=== PATIENT | male | born 1940 | race Caucasian/White ===

== ENCOUNTER → 2018-06-26 | Outpatient (CLI) | payer OTHER | END | disposition home or self-care (01) | LOC: PETCFH 07:47 | PROVIDERS: ATTEND Internal Medicine Hematology & Oncology | DX: C90.00 Multiple myeloma not having achieved remission (principal); N28.1 Cyst of kidney, acquired; I10 Essential (primary) hypertension; I73.9 Peripheral vascular disease, unspecified | CPT/HCPCS: 78815; A9552 ==

== ENCOUNTER 2018-07-19 11:49 | Day surgery (SDC) | payer OTHER ==
[~2018-07-19] VITALS: Ht 182.9 cm; Wt 118.2 kg
[~2018-07-19 11:49] MED LIST: ACET325T26 PO; AMLO10TA8 PO; ASCO10004 PO; ASPI81TA45 PO; ATOR10TA9 PO; CHOL10003 PO; CYAN100074 PO; DIPHENHYDRAMINE 50 MG/ML, 1ML IVPush PRN; FENTANYL PF 100 MCG/2ML IV PRN; FINA5TAB4 PO; HALOPERIDOL 5 MG/ML IV PRN; HYDROmorphone 2 MG/ML, 1ML IVPush PRN; LABETALOL 5MG/ML, 20ML IV PRN; MEPERIDINE/PF 25MG/0.5ML IVPush PRN; METOPROLOL 1 MG/ML, 5ML IV PRN; MULT-516 PO; OXYB10TA PO; OXYcodone 5 MG/5 ML ORAL.SOL UDC PO PRN; PROCHLORPERAZINE 5 MG/ML, 2ML IV PRN; PROMETHAZINE 25 MG/ML, 1ML IV PRN; hydrALAzine 20 MG/ML, 1ML IV PRN
[2018-07-19] MEDS ORDERED: CEFU250T66 PO (12:38)
[2018-07-19] MEDS ORDERED: LACTATED RINGERS 1,000 ML IV SCH (12:40)
[2018-07-19] MEDS ORDERED: FENTANYL PF 100 MCG/2ML ONE ×2 (12:42→14:41)
[2018-07-19 12:44] VITALS: BP 94/57
[2018-07-19] MEDS ORDERED: ACETAMINOPHEN 500 MG TABLET PO ONE (13:00)
[2018-07-19] MEDS ORDERED: PIPERACILLIN/TAZO/PMX 3.375GM 50 ML ONE (13:58)
[2018-07-19] MEDS ORDERED: OPIUM/BELLADONNA SUPP.RECT 16.2-30 MG ONE (14:55)
[2018-07-19] MEDS ORDERED: GLYCOPYRROLATE 0.2MG/1ML, 5ML ONE (15:14)
[2018-07-19] MEDS ORDERED: ONDANSETRON 2MG/ML, 2ML ONE (15:14)
[2018-07-19] MEDS ORDERED: SUCCINYLCHOLINE 20 MG/ML, 10ML ONE (15:14)
[2018-07-19] MEDS ORDERED: CEFAZOLIN 1,000 MG ONE (15:14)
[2018-07-19] MEDS ORDERED: DEXAMETHASONE 4 MG/ML, 1ML ONE (15:14)
[2018-07-19] MEDS ORDERED: ROCURONIUM 10MG/ML,5ML ONE (15:14)
[2018-07-19] MEDS ORDERED: PROPOFOL 10 MG/ML, 20ML ONE (15:14)
[2018-07-19] MEDS ORDERED: NEOSTIGMINE 1 MG/ML, 10ML ONE (15:14)
[2018-07-19] MEDS ORDERED: OMNIPAQUE 350 MG/ML, 50 ML BOTTLE IV ONE (19:31)
== END 2018-07-19 18:30 | disposition home or self-care (01) ==
LOC: OUT 11:49
PROVIDERS: ATTEND Student in an Organized Health Care Education/Training Program
DX: N13.30 Unspecified hydronephrosis (principal); C90.00 Multiple myeloma not having achieved remission; N40.1 Benign prostatic hyperplasia with lower urinary tract symptoms; N39.41 Urge incontinence; R35.0 Frequency of micturition; R39.14 Feeling of incomplete bladder emptying; I12.9 Hypertensive chronic kidney disease with stage 1 through stage 4 chronic kidney disease, or unspecified chronic kidney disease; N47.1 Phimosis; N18.9 Chronic kidney disease, unspecified; E78.5 Hyperlipidemia, unspecified; J44.9 Chronic obstructive pulmonary disease, unspecified; F17.210 Nicotine dependence, cigarettes, uncomplicated; E66.9 Obesity, unspecified; Z68.35 Body mass index [BMI] 35.0-35.9, adult; Z72.89 Other problems related to lifestyle; Z79.891 Long term (current) use of opiate analgesic; Z79.899 Other long term (current) drug therapy; Z91.012 Allergy to eggs; Z91.013 Allergy to seafood; Z88.8 Allergy status to other drugs, medicaments and biological substances; Z85.038 Personal history of other malignant neoplasm of large intestine; Z96.641 Presence of right artificial hip joint; Z98.890 Other specified postprocedural states
CPT/HCPCS: 50431; 52332; 52351; 52648; 74420; 88112; 93005; C1758; C1769; C2617; J0330; J1100; J2405; J2543; J2704; J2710; J3010; J7120; Q9967; J0690

== ENCOUNTER 2019-10-31 11:22 | Observation (INO) | payer OTHER ==
[~2019-10-31] VITALS: Ht 182.9 cm; Wt 118.0 kg
[~2019-10-31 11:22] MED LIST changes: +ASCO100018 PO; -ASCO10004 PO; +CEFU250T66 PO; -DIPHENHYDRAMINE 50 MG/ML, 1ML IVPush PRN; -FENTANYL PF 100 MCG/2ML IV PRN; -HALOPERIDOL 5 MG/ML IV PRN; -HYDROmorphone 2 MG/ML, 1ML IVPush PRN; -LABETALOL 5MG/ML, 20ML IV PRN; -MEPERIDINE/PF 25MG/0.5ML IVPush PRN; -METOPROLOL 1 MG/ML, 5ML IV PRN; -OXYB10TA PO; +OXYB10TA26 PO; -OXYcodone 5 MG/5 ML ORAL.SOL UDC PO PRN; -PROCHLORPERAZINE 5 MG/ML, 2ML IV PRN; -PROMETHAZINE 25 MG/ML, 1ML IV PRN; -hydrALAzine 20 MG/ML, 1ML IV PRN
[2019-10-31 11:44] VITALS: BP 111/56
[2019-10-31] MEDS ORDERED: LACTATED RINGERS 1,000 ML IV SCH (11:47)
[2019-10-31] MEDS ORDERED: PLEASE ENTER HEIGHT AND WEIGHT MC SCH (12:00)
[2019-10-31] MEDS ORDERED: CHLORHEXIDINE 15 ML UDC ONE (13:00)
[2019-10-31] MEDS ORDERED: PROPOFOL 10 MG/ML, 20ML ONE ×2 (13:30→13:45)
[2019-10-31] MEDS ORDERED: LIDOCAINE-MPF 2% ,5ML ONE (13:30)
[2019-10-31] MEDS ORDERED: FENTANYL PF 100 MCG/2ML ONE ×3 (13:30→19:00)
[2019-10-31] MEDS ORDERED: CHLORHEXIDINE 15 ML UDC MM STA (13:42)
[2019-10-31] MEDS ORDERED: MIDAZOLAM 1 MG/ML, 2ML ONE (13:43)
[2019-10-31] MEDS ORDERED: FENTANYL PF 250 MCG/5ML ONE (13:43)
[2019-10-31] MEDS ORDERED: ROCURONIUM 10MG/ML,5ML ONE (13:45)
[2019-10-31] MEDS ORDERED: GLYCOPYRROLATE 0.2MG/1ML, 5ML ONE (13:45)
[2019-10-31] MEDS ORDERED: NEOSTIGMINE 1 MG/ML, 10ML ONE (13:45)
[2019-10-31] MEDS ORDERED: CEFAZOLIN 1,000 MG ONE (13:45)
[2019-10-31] MEDS ORDERED: ONDANSETRON 2MG/ML, 2ML IVPush PRN (16:30)
[2019-10-31] MEDS ORDERED: hydrALAzine 20 MG/ML, 1ML IVPush PRN (16:30)
[2019-10-31] MEDS ORDERED: ACETAMINOPHEN 325 MG TABLET PO PRN (16:30)
[2019-10-31] MEDS ORDERED: MELATONIN 5 MG TABLET PO PRN (16:30)
[2019-10-31] MEDS ORDERED: HYDROmorphone 2 MG/ML, 1ML IVPush PRN (16:30)
[2019-10-31] MEDS ORDERED: BACLOFEN 10 MG TABLET PO PRN (16:30)
[2019-10-31] MEDS ORDERED: ONDANSETRON ODT 4 MG PO PRN (16:30)
[2019-10-31] MEDS ORDERED: LABETALOL 5MG/ML, 20ML IVPush PRN (16:30)
[2019-10-31] MEDS ORDERED: KETOROLAC 30 MG/1 ML IV PRN (16:30)
[2019-10-31] MEDS ORDERED: IBUPROFEN 600 MG TABLET PO PRN (16:30)
[2019-10-31] MEDS ORDERED: ENOXAPARIN 40 MG/0.4 ML SQ SCH (16:30)
[2019-10-31] MEDS ORDERED: SUCCINYLCHOLINE 20 MG/ML, 10ML ONE (18:14)
[2019-10-31] MEDS ORDERED: OMNIPAQUE 350 MG/ML, 50 ML BOTTLE IV ONE (18:40)
[2019-10-31] MEDS ORDERED: VASOPRESSIN 20 UNIT/ML, 1ML ONE (19:00)
[2019-10-31 21:59] VITALS: BP 117/69
[2019-10-31] MEDS ORDERED: ATORVASTATIN 10 MG TABLET PO SCH (22:09)
[2019-10-31] MEDS ORDERED: CEFUROXIME 500 MG TABLET PO SCH (22:09)
[2019-11-01 00:01] VITALS: BP 112/67
[2019-11-01 03:34] VITALS: BP 113/68
[2019-11-01] MEDS ORDERED: ASPIRIN 81 MG TABLET EC PO SCH (06:00)
[2019-11-01 07:08] VITALS: BP 124/70
[2019-11-01] MEDS ORDERED: ATORVASTATIN 10 MG TABLET PO SCH (09:00)
[2019-11-01] MEDS ORDERED: MULTIVITAMIN 1 TABLET PO SCH (09:00)
[2019-11-01] MEDS ORDERED: CYANOCOBALAMIN 1,000 MCG TABLET PO SCH (09:00)
[2019-11-01] MEDS ORDERED: AMLODIPINE 10 MG TAB PO SCH (09:00)
[2019-11-01] MEDS ORDERED: OXYBUTYNIN CHLORIDE 5 MG TABLET PO SCH (09:00)
[2019-11-01] MEDS ORDERED: FINASTERIDE 5 MG TABLET PO SCH (09:00)
[2019-11-01] MEDS ORDERED: CHOLECALCIFEROL 1,000 UNIT TABLET PO SCH (09:00)
[2019-11-01] MEDS ORDERED: SENNA/DOCUSATE TABLET PO SCH (09:00)
[2019-11-01] MEDS ORDERED: ASCORBIC ACID 500 MG TABLET PO SCH (09:00)
[2019-11-01 12:14] VITALS: BP 137/75
== END 2019-11-01 12:15 | disposition home or self-care (01) ==
LOC: OUT 11:22 → SUATTDRO 15:09 → ORIP 17:49 → 4NE 20:51
PROVIDERS: ADMIT Hospitalist; ATTEND Family Medicine
DX: N13.1 Hydronephrosis with ureteral stricture, not elsewhere classified (principal); Z20.828 Contact with and (suspected) exposure to other viral communicable diseases; R33.9 Retention of urine, unspecified; E66.01 Morbid (severe) obesity due to excess calories; C90.00 Multiple myeloma not having achieved remission; N40.0 Benign prostatic hyperplasia without lower urinary tract symptoms; I10 Essential (primary) hypertension; J44.9 Chronic obstructive pulmonary disease, unspecified; M19.90 Unspecified osteoarthritis, unspecified site; E78.5 Hyperlipidemia, unspecified; I73.9 Peripheral vascular disease, unspecified; K21.9 Gastro-esophageal reflux disease without esophagitis; N47.1 Phimosis; F17.200 Nicotine dependence, unspecified, uncomplicated; Z85.038 Personal history of other malignant neoplasm of large intestine; Z96.0 Presence of urogenital implants; Z79.899 Other long term (current) drug therapy; Z79.82 Long term (current) use of aspirin; Z90.79 Acquired absence of other genital organ(s)
CPT/HCPCS: 52332; 74420; 87635; 93005; 96372; C1769; C2617; G0378; J0330; J0690; J1650; J2250; J2704; J2710; J3010; J3490; J7120; Q9967

== ENCOUNTER 2020-05-06 10:24 | Outpatient (CLI) | payer OTHER ==
[~2020-05-06] VITALS: Ht 185.4 cm; Wt 117.8 kg
[~2020-05-06 10:24] MED LIST changes: +AMLO-211 PO; -AMLO10TA8 PO
[2020-05-06] MEDS ORDERED: ASCO500T56 PO (11:14)
[2020-05-06] MEDS ORDERED: FERR324T5 PO (11:14)
[2020-05-06] MEDS ORDERED: ACYC-114 PO (11:14)
[2020-05-06] MEDS ORDERED: GABA600T7 PO (11:14)
[2020-05-06] MEDS ORDERED: lisinopril PO (11:14)
[2020-05-06] MEDS ORDERED: CHLORHEXIDINE 15 ML UDC PO ONE (11:30)
[2020-05-06] MEDS ORDERED: LACTATED RINGERS 1,000 ML IV SCH (11:30)
[2020-05-06 11:35] VITALS: BP 151/83
[2020-05-06 12:08] LABS: BASOPHILS % (AUTO) 1 % (0-1); EOSINOPHILS % (AUTO) 3 % (1-7); LYMPHOCYTES % (AUTO) 15 % (22-44); MEAN CORPUSCULAR HEMOGLOBIN 30.8 pg (27.5-34.5); MEAN CORPUSCULAR HGB CONC 32.9 g/dL (33.2-36.2); MONOCYTES % (AUTO) 9 % (2-9); NEUTROPHILS % (AUTO) 73 % (42-75); PLATELET COUNT 180 x10^3/uL (130-400); RED BLOOD COUNT 3.61 x10^6/uL (4.38-5.82); RED CELL DISTRIBUTION WIDTH 18.9 % (9.4-14.8)
[2020-05-06 12:09] LABS: MD NO
[2020-05-06 12:13] LABS: ANION GAP 6 mmol/L (5-15); CALCIUM 9.2 mg/dL (8.5-10.1); CHLORIDE 108 mmol/L (98-107); CREATININE 1.14 mg/dL (0.7-1.3)
[2020-05-06 12:20] LABS: INTERNATIONAL NORMALIZED RATIO 1.06 (0.93-1.1); PROTHROMBIN TIME 11.3 Seconds (9.6-11.5)
[2020-05-06] MEDS ORDERED: OMNIPAQUE 350 MG/ML, 50 ML BOTTLE ONE (12:32)
== END 2020-05-06 23:59 | disposition home or self-care (01) ==
LOC: STAR 10:24 → OUT 10:24 → STAR 23:59
PROVIDERS: ATTEND Student in an Organized Health Care Education/Training Program
DX: Z01.818 Encounter for other preprocedural examination (principal); N13.5 Crossing vessel and stricture of ureter without hydronephrosis; I44.4 Left anterior fascicular block; Z79.899 Other long term (current) drug therapy; Z20.822 Contact with and (suspected) exposure to COVID-19
CPT/HCPCS: 36415; 80048; 85025; 85610; 87635; 93005; Q9967; J7120

== ENCOUNTER 2020-06-12 09:31 | Day surgery (SDC) | payer OTHER ==
[~2020-06-12] VITALS: Ht 182.9 cm; Wt 113.0 kg
[~2020-06-12 09:31] MED LIST changes: +ACYC-40 PO; +ASCO500T56 PO; +FERR324T5 PO; +GABA600T7 PO; +lisinopril PO
[2020-06-12 10:12] VITALS: BP 148/83
[2020-06-12] MEDS ORDERED: CHLORHEXIDINE 15 ML UDC ONE (10:13)
[2020-06-12] MEDS ORDERED: CHLORHEXIDINE 15 ML UDC PO ONE (10:30)
[2020-06-12] MEDS ORDERED: LACTATED RINGERS 1,000 ML IV SCH (10:30)
[2020-06-12] MEDS ORDERED: OMNIPAQUE 350 MG/ML, 50 ML BOTTLE ONE (11:37)
[2020-06-12] MEDS ORDERED: FENTANYL PF 100 MCG/2ML ONE (11:47)
[2020-06-12] MEDS ORDERED: AMPICILLIN 2 GM ONE (11:52)
[2020-06-12] MEDS ORDERED: GENTAMICIN 80 MG/2 ML ONE (11:52)
[2020-06-12] MEDS ORDERED: DEXAMETHASONE 4 MG/ML, 1ML ONE (12:34)
[2020-06-12] MEDS ORDERED: PROPOFOL 10 MG/ML, 20ML ONE (12:34)
[2020-06-12] MEDS ORDERED: CEFAZOLIN 1,000 MG ONE (12:34)
[2020-06-12] MEDS ORDERED: ONDANSETRON 2MG/ML, 2ML ONE (12:34)
[2020-06-12] MEDS ORDERED: OXYcodone 5 MG/5 ML ORAL.SOL UDC PO PRN (13:00)
[2020-06-12] MEDS ORDERED: ONDANSETRON 2MG/ML, 2ML IVPush PRN (13:00)
[2020-06-12] MEDS ORDERED: PROMETHAZINE 25 MG SUPP PR PRN (13:00)
[2020-06-12] MEDS ORDERED: HYDROmorphone 1 MG/ML, 1ML INJ IVPush PRN (13:00)
[2020-06-12] MEDS ORDERED: ACETAMINOPHEN 325 MG TABLET PO PRN (13:00)
[2020-06-12] MEDS ORDERED: PROMETHAZINE 25 MG/ML, 1ML IVPush PRN (13:00)
[2020-06-12] MEDS ORDERED: LABETALOL 5MG/ML, 20ML IV PRN (13:00)
[2020-06-12] MEDS ORDERED: FENTANYL PF 100 MCG/2ML IV PRN (13:00)
[2020-06-12] MEDS ORDERED: hydrALAzine 20 MG/ML, 1ML IV PRN (13:00)
== END 2020-06-12 15:05 | disposition home or self-care (01) ==
LOC: OUT 09:31
PROVIDERS: ATTEND Student in an Organized Health Care Education/Training Program
DX: N13.39 Other hydronephrosis (principal); N39.41 Urge incontinence; I10 Essential (primary) hypertension; J44.9 Chronic obstructive pulmonary disease, unspecified; K21.9 Gastro-esophageal reflux disease without esophagitis; C90.00 Multiple myeloma not having achieved remission; E66.01 Morbid (severe) obesity due to excess calories; F17.210 Nicotine dependence, cigarettes, uncomplicated; M19.90 Unspecified osteoarthritis, unspecified site; Z68.33 Body mass index [BMI] 33.0-33.9, adult; Z88.5 Allergy status to narcotic agent; Z91.018 Allergy to other foods; Z20.822 Contact with and (suspected) exposure to COVID-19; Z72.89 Other problems related to lifestyle; Z80.0 Family history of malignant neoplasm of digestive organs; Z98.890 Other specified postprocedural states
CPT/HCPCS: 52332; 74420; 87635; C1769; C2617; J0290; J0690; J1100; J2405; J2704; J3010; J7120; Q9967; J1580